=== PATIENT | female | born 1955 | race Caucasian/White ===

== ENCOUNTER 2021-08-03 07:26 | Day surgery (SDC) | payer OTHER, SELFPAY ==
[~2021-08-03] VITALS: Ht 152.4 cm; Wt 75.7 kg
[2021-08-03] MEDS ORDERED: NS IRRIG SOLN 1000 ML IR ONE (09:57)
[2021-08-03] MEDS ORDERED: ARTICAINE HCL/EPINEPHRINE 4%/1:200,000 BIT 1.7 ML CARTRIDGE IJ ONE (09:57)
[2021-08-03] MEDS ORDERED: ACETAMINOPHEN 500 MG TABLET PO ONE (10:30)
[2021-08-03] MEDS ORDERED: ACETAMINOPHEN 500 MG TABLET ONE (10:30)
[2021-08-03 13:55] VITALS: BP_SYST 145
== END 2021-08-03 13:57 | disposition home or self-care (01) ==
LOC: SDS 07:26 → SMU 08:45 → SDS 13:57
PROVIDERS: ATTEND Dentist General Practice
DX: M27.2 Inflammatory conditions of jaws (principal); M89.8X0 Other specified disorders of bone, multiple sites; M26.603 Bilateral temporomandibular joint disorder, unspecified; K05.223 Aggressive periodontitis, generalized, severe; I10 Essential (primary) hypertension; E78.5 Hyperlipidemia, unspecified; G50.1 Atypical facial pain; Z79.899 Other long term (current) drug therapy; Z20.822 Contact with and (suspected) exposure to COVID-19
CPT/HCPCS: 21026; 21215; 21248; 36415; 70140; 87426; C1713 ×2

== ENCOUNTER 2021-08-24 07:50 | Day surgery (SDC) | payer OTHER ==
[~2021-08-24] VITALS: Ht 152.4 cm; Wt 75.7 kg
[2021-08-24] MEDS ORDERED: NS IRRIG SOLN 1000 ML IR ONE (07:51)
[2021-08-24] MEDS ORDERED: NS 250 ML BAG IV ONE (07:51)
[2021-08-24] MEDS ORDERED: ARTICAINE HCL/EPINEPHRINE 4%/1:200,000 BIT 1.7 ML CARTRIDGE IJ ONE (07:51)
[2021-08-24] MEDS ORDERED: BENZOCAINE 20% GEL 32 GM BOTTLE MM ONE (07:51)
[2021-08-24 15:04] VITALS: BP_SYST 133
== END 2021-08-24 14:35 | disposition home or self-care (01) ==
LOC: SDS 07:50 → SMU 07:54 → SDS 14:35
PROVIDERS: ATTEND Dentist General Practice
DX: M27.2 Inflammatory conditions of jaws (principal); K05.6 Periodontal disease, unspecified; M89.8X0 Other specified disorders of bone, multiple sites; M26.603 Bilateral temporomandibular joint disorder, unspecified; M85.9 Disorder of bone density and structure, unspecified; K05.223 Aggressive periodontitis, generalized, severe; I10 Essential (primary) hypertension; E78.5 Hyperlipidemia, unspecified; E66.9 Obesity, unspecified; Z20.822 Contact with and (suspected) exposure to COVID-19; Z79.899 Other long term (current) drug therapy
CPT/HCPCS: 21210; 21248; 36415; 70140; 87426; C1713 ×2; J7050

== ENCOUNTER 2021-09-21 07:38 | Day surgery (SDC) | payer OTHER ==
[~2021-09-21] VITALS: Ht 152.4 cm; Wt 75.7 kg
[2021-09-21] MEDS ORDERED: BENZOCAINE 20% GEL 32 GM BOTTLE MM ONE (11:30)
[2021-09-21] MEDS ORDERED: ARTICAINE HCL/EPINEPHRINE 4%/1:200,000 BIT 1.7 ML CARTRIDGE IJ ONE (11:30)
[2021-09-21] MEDS ORDERED: NS 250 ML IV.SOLN IV ONE (11:30)
[2021-09-21] MEDS ORDERED: NS IRRIG SOLN 1000 ML IR ONE (11:30)
[2021-09-21 12:07] VITALS: BP_SYST 132
== END 2021-09-21 12:20 | disposition home or self-care (01) ==
LOC: SDS 07:38 → SMU 07:38 → SDS 12:20
PROVIDERS: ATTEND Dentist General Practice
DX: M27.2 Inflammatory conditions of jaws (principal); K05.6 Periodontal disease, unspecified; M89.8X0 Other specified disorders of bone, multiple sites; M26.603 Bilateral temporomandibular joint disorder, unspecified; K05.223 Aggressive periodontitis, generalized, severe; I10 Essential (primary) hypertension; E78.5 Hyperlipidemia, unspecified; M17.0 Bilateral primary osteoarthritis of knee; Z79.899 Other long term (current) drug therapy; Z20.822 Contact with and (suspected) exposure to COVID-19
CPT/HCPCS: 21025; 21215; 21248; 36415; 70140; 87426; C1713; J7050

== ENCOUNTER 2021-10-12 07:56 | Day surgery (SDC) | payer OTHER ==
[~2021-10-12] VITALS: Ht 152.4 cm; Wt 75.7 kg
[2021-10-12] MEDS ORDERED: ARTICAINE HCL/EPINEPHRINE 4%/1:200,000 BIT 1.7 ML CARTRIDGE IJ ONE (09:00)
[2021-10-12] MEDS ORDERED: BENZOCAINE 20% GEL 32 GM BOTTLE MM ONE (09:00)
[2021-10-12] MEDS ORDERED: NS IRRIG SOLN 1000 ML IR ONE (09:00)
[2021-10-12] MEDS ORDERED: NS 100 ML BAG ONE (09:00)
[2021-10-12 13:24] VITALS: BP_SYST 143
== END 2021-10-12 13:10 | disposition home or self-care (01) ==
LOC: SDS 07:56 → SMU 08:05 → SDS 13:10
PROVIDERS: ATTEND Dentist General Practice
DX: M27.2 Inflammatory conditions of jaws (principal); K05.6 Periodontal disease, unspecified; M17.0 Bilateral primary osteoarthritis of knee; M89.8X0 Other specified disorders of bone, multiple sites; M26.603 Bilateral temporomandibular joint disorder, unspecified; K05.223 Aggressive periodontitis, generalized, severe; R03.0 Elevated blood-pressure reading, without diagnosis of hypertension; I10 Essential (primary) hypertension; E78.5 Hyperlipidemia, unspecified; Z79.82 Long term (current) use of aspirin; M85.9 Disorder of bone density and structure, unspecified; Z79.899 Other long term (current) drug therapy
CPT/HCPCS: 21025; 21215; 21248; 36415; 70140; 87426; C1713

== ENCOUNTER 2021-11-09 07:40 | Day surgery (SDC) | payer OTHER ==
[~2021-11-09] VITALS: Ht 152.4 cm; Wt 75.7 kg
[2021-11-09] MEDS ORDERED: NS IRRIG SOLN 1000 ML IR ONE ×2 (10:00)
[2021-11-09] MEDS ORDERED: ARTICAINE HCL/EPINEPHRINE 4%/1:200,000 BIT 1.7 ML CARTRIDGE IJ ONE ×2 (10:00)
[2021-11-09] MEDS ORDERED: NS 250 ML BAG IV ONE ×2 (10:00)
[2021-11-09] MEDS ORDERED: BENZOCAINE 20% GEL 32 GM BOTTLE MM ONE ×2 (10:00)
[2021-11-09 13:14] VITALS: BP_SYST 136
== END 2021-11-09 12:59 | disposition home or self-care (01) ==
LOC: SDS 07:40 → SMU 07:43 → SDS 12:59
PROVIDERS: ATTEND Dentist General Practice
DX: M27.2 Inflammatory conditions of jaws (principal); K05.6 Periodontal disease, unspecified; I10 Essential (primary) hypertension; E78.5 Hyperlipidemia, unspecified; M17.0 Bilateral primary osteoarthritis of knee; Z98.890 Other specified postprocedural states; Z20.822 Contact with and (suspected) exposure to COVID-19; Z79.899 Other long term (current) drug therapy
CPT/HCPCS: 21025; 21215; 21248; 36415; 70140; 87426; C1713 ×2; J7050